=== PATIENT | female | born 2000 | race African-American/Black ===

== ENCOUNTER 2023-07-30 14:22 | Emergency (ER) | payer MEDICAID ==
[~2023-07-30] VITALS: Ht 157.5 cm; Wt 53.1 kg
[2023-07-30 14:31] VITALS: O2SAT 99
[2023-07-30 16:55] VITALS: BP 128/74; PULSE 79; RESP 18; TEMP 98.4
== END 2023-07-30 16:55 | disposition home or self-care (01) ==
LOC: ER 14:55
DX: M25.512 Pain in left shoulder (principal)
CPT/HCPCS: 73030; 99283; A4565